=== PATIENT | female | born 1985 | race Caucasian/White ===

== ENCOUNTER 2019-04-12 20:05 | Emergency (ER) | payer MEDICAID ==
--- NOTE | 2019-04-12 20:35 | EDM.PDOC ---
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 Painless. Denies cramping. Started as dark brown color Monday (3 days ago) but today turned bright red. She called her physician and he recommended that she come here for evaluation. Has not had an US study as of yet to evaluate IUP. No other complaints. - Related Data Allergies Allergy/AdvReac Type Severity Reaction Status Date / Time codeine Allergy Hyperactivi Verified 04/12/19 20:07 ty Home Meds: Home Meds Fluticasone Propionate [Flonase Allergy Relief] 1 spray NS DAILY 04/12/19 [ History] Past Medical History HEENT History: Reports: Impaired Vision Cardiovascular History: Reports: Hypertension, Other (See Below) Other Cardiovascular History: gestational HTN Respiratory History: Reports: None Gastrointestinal History: Reports: None Genitourinary History: Reports: None MORTGAGE SPECIALIST History: Reports: Musculoskeletal History: Reports: Fracture, Other (See Below) Other Musculoskeletal History: left arm fracture x 2 Neurological History: Reports: Migraines Psychiatric History: Reports: None Endocrine/Metabolic History: Reports: Obesity/BMI 30+ Hematologic History: Reports: None Immunologic History: Reports: None Oncologic (Cancer) History: Reports: None Dermatologic History: Reports: None - Infectious Disease History Infectious Disease History: Reports: Chicken Pox - Past Surgical History HEENT Surgical History: Reports: Oral Surgery Cardiovascular Surgical History: Reports: None Respiratory Surgical History: Reports: None GI Surgical History: Reports: None Musculoskeletal Surgical History: Reports: None Social & Family History - Tobacco Use Smoking Status *Q: Current Every Day Smoker Years of Tobacco use: 14 Packs/Tins Daily: 0.5 ED ROS GENERAL - Review of Systems Review Of Systems: See Below Constitutional: Reports: No Symptoms HEENT: Reports: No Symptoms Respiratory: Reports: No Symptoms Cardiovascular: Reports: No Symptoms GI/Abdominal: Reports: No Symptoms : Reports: Other (vaginal bleeding as in HPI). Denies: Discharge, Dysuria, Flank Pain, Frequency, Hematuria, Pain, Urgency, Urinary Retention Musculoskeletal: Reports: No Symptoms Skin: Reports: No Symptoms Neurological: Reports: No Symptoms Psychiatric: Reports: No Symptoms ED EXAM - Physical Exam Exam: See Below General Appearance: Alert, WD/WN, No Apparent Distress Eye Exam: Bilateral Eye: EOMI, PERRL Nose: No: Nasal Deformity, Nasal Swelling, Nasal Drainage Throat/Mouth: Normal Lips, Normal Voice, No Airway Compromise Head: Atraumatic, Normocephalic Neck: Supple Respiratory/Chest: No Respiratory Distress GI/Abdominal Exam: Soft, Non-Tender, No Distention Back Exam: No: CVA Tenderness (L), CVA Tenderness (R) Extremities: Normal Capillary Refill Neurological: Alert, Oriented, Normal Cognition, Normal Gait Psychiatric: Normal Affect, Normal Mood Skin Exam: Warm, Dry, Intact, Normal Color Course - Vital Signs Last Recorded V/S: Last Vital Signs Temp 37.0 C 04/12/19 20:08 Pulse 100 04/12/19 20:08 Resp 16 04/12/19 20:08 BP 145/86 H 04/12/19 20:08 Pulse Ox 97 04/12/19 20:08 - Re-Assessments/Exams Free Text/Narrative Re-Assessment/Exam: 04/12/19 20:39 Given that the patient is 7wks along tomorrow and has the current bleeding complaint, US study is indicated to see if this is an intrauterine and not tubal. Cannot rule out bleeding associated with miscarriage. Call placed to [place] to arrange for patient to be seen and have US study performed. Accepted by . Vital signs stable, pain-free. Will be driven by private vehicle to the [place] ER for further evaluation. Departure - Departure Time of Disposition: 20:34 Disposition: DC/Tfer to Acute Hospital 02 Condition: Good Clinical Impression: Vaginal bleeding before 22 weeks gestation - Discharge Information *PRESCRIPTION DRUG MONITORING PROGRAM REVIEWED*: Not Applicable *COPY OF PRESCRIPTION DRUG MONITORING REPORT IN PATIENT ZHANE: Not Applicable Referrals: PCP,Unknown [Primary Care Provider] - Forms: ED Department Discharge Additional Instructions: drive directly to [place]. They will evaluate you and get an ultrasound study performed to assess the bleeding.
== END 2019-04-12 20:45 ==
LOC: LL.ED 20:05
DX: O20.8 Other hemorrhage in early pregnancy (principal); O16.1 Unspecified maternal hypertension, first trimester; O99.331 Smoking (tobacco) complicating pregnancy, first trimester; F17.210 Nicotine dependence, cigarettes, uncomplicated; Z88.5 Allergy status to narcotic agent; Z79.899 Other long term (current) drug therapy; Z3A.01 Less than 8 weeks gestation of pregnancy
CPT/HCPCS: 99284

== ENCOUNTER 2019-12-03 09:56 | Emergency (ER) | payer MEDICAID ==
--- NOTE | 2019-12-03 10:10 | EDM.PDOC ---
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 No paper hospital chart available.) History Limitations: Reports: No Limitations - History of Present Illness INITIAL COMMENTS - FREE TEXT/NARRATIVE: The patient drove herself to the emergency room via private automobile for evaluation of probable spontaneous rupture of membranes. She was evaluated by her OB at [facility] in [place] [facility] yesterday and was dilated at 3 cm with no stripping of membranes at that time. Note that at about 7 AM this morning the patient had some moderate intermittent somewhat progressive clear fluid from her vaginal area with no odor of urine, etc.. She denies any pain or uterine contractions at this time. No problems during current other than initial mild vaginal spotting secondary to uterine implantation at about 7 weeks gestation. No recent history of abdominal pain, heartburn, nausea, diarrhea, melena, gross hematochezia, or any food intolerance, including fatty foods, etc.. She denies any gross hematuria, colic, or other UTI symptoms. The patient also denies any recent fever, cough, wheezing, dyspnea, etc.. She did get her influenza booster this season. Onset: Today, Sudden Onset Date: 12/03/19 Onset Time: 07:00 Duration: Getting Worse, Intermittent Location: Reports: Other (No pain) Quality: Reports: Other (No pain) Severity: Mild (Leakage) Improves with: Reports: None Worsens with: Reports: None Associated Symptoms: Reports: No Other Symptoms. Denies: Confusion, Chest Pain , Cough, Diaphoresis, Fever/Chills, Malaise, Nausea/Vomiting, Shortness of Breath, Weakness Treatments SAFETY ADMIN ASSISTANT: Reports: Other (see below) (None) - Related Data Allergies Allergy/AdvReac Type Severity Reaction Status Date / Time codeine Allergy Hyperactivi Verified 04/12/19 20:07 ty Home Meds: Home Meds Fluticasone Propionate [Flonase Allergy Relief] 1 spray NS DAILY PRN 04/12/19 [ History] Pnv No.95/Ferrous Fum/Folic AC [ Vitamins Tablet] 1 tab PO DAILY [History] Past Medical History HEENT History: Reports: Allergic Rhinitis, Impaired Vision, Other (See Below). Denies: Hard of Hearing, Otitis Media, Retinal Detachment Other HEENT History: Patient wears glasses. Cardiovascular History: Reports: Hypertension, Other (See Below). Denies: Afib , Aneurysm, Arrhythmia, Blood Clots/VTE/DVT, CAD, Heart Failure, Heart Murmur, High Cholesterol, [place], PVD Other Cardiovascular History: Gestational HTN during first without preeclampsia. Respiratory History: Reports: None. Denies: Asthma, Bronchitis, Recurrent, COPD , Intubation, Difficult, Intubation, Previous, PE, Pneumothorax, Sleep Apnea, TB Gastrointestinal History: Reports: None. Denies: Bowel Obstruction, Celiac Disease, Cholelithiasis, Chronic Constipation, Chronic Diarrhea, Fecal Incontinence, Gastritis, GERD, GI Bleed, Irritable Bowel Syndrome, Jaundice, PUD Genitourinary History: Reports: None. Denies: Acute Renal Failure, Chronic Renal Insuffiency, Renal Calculus, STD, Urinary Incontinence, UTI, Recurrent JACQUARD LOOM CARPET WEAVER History: Reports: . Denies: Dysfunctional Uterine Bleeding, Endometriosis, Fibroids, Polycystic Ovaries, Spontaneous , Therapeutic : 2 Para: 1 LMP (Approximate): Other (See Below) Other JACQUARD LOOM CARPET WEAVER History: Current of 40 3/7 weeks with spontaneous rupture of membranes as above. First was induction at 41 weeks gestation with elevated blood pressure without proteinuria, preeclampsia, etc. during her , no other problems during or delivery with with this . 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 Musculoskeletal History: Reports: Fracture, Other (See Below). Denies: Arthritis, Back Pain, Chronic, Gout, Osteoarthritis, RA, SLE Other Musculoskeletal History: Left arm mid radial and ulnar fractures 2 initially at age 5 then at age 9. Right digit #1 toe fracture at age 16. Neurological History: Reports: Headaches, Chronic, Migraines. Denies: Concussion, CVA, Head Trauma, MS, Neuropathy, Peripheral, Parkinson's, Seizure, TIA, Vertigo Psychiatric History: Reports: None. Denies: Abuse, Victim of, ADD, ADHD, Addiction, Anxiety, Depression, Psych Hospitalization(s), PTSD, Suicide Attempt , Suicidal Ideation Endocrine/Metabolic History: Reports: Obesity/BMI 30+. Denies: Diabetes, Gestational, Diabetes, Type I, Diabetes, Type II, Diabetes Mellitus, Type 3c, Hypothyroidism, IDDM Hematologic History: Reports: None. Denies: Blood Transfusion(s), Iron Deficiency Immunologic History: Reports: None. Denies: AIDS, HIV, SLE Oncologic (Cancer) History: Reports: Other (See Below) Other Oncologic History: Abnormal Pap smear secondary to HPV requiring LEEP procedure as below in 2016. Dermatologic History: Reports: None. Denies: Eczema, Psoriasis - Infectious Disease History Infectious Disease History: Reports: Chicken Pox. Denies: C-Difficile, Measles , Meningitis, Mononucleosis, MRSA, Mumps, Pertussis (Whooping Cough), Rheumatic Fever, Rubella, Scarlet Fever, Shingles, TB, VRE - Past Surgical History Head Surgeries/Procedures: Reports: None HEENT Surgical History: Reports: None, Oral Surgery, Other (See Below). Denies : Adenoidectomy, Eye Surgery, Laser Surgery, LASIK, Myringotomy w Tube(s), Naso- Sinus Surgery, Tonsillectomy Other HEENT Surgeries/Procedures: [place] teeth extraction is 4 at age 18. Additional teeth extraction secondary to braces at age 12. Cardiovascular Surgical History: Reports: None. Denies: Varicose Respiratory Surgical History: Reports: None. Denies: Thoracentesis GI Surgical History: Reports: None. Denies: Appendectomy, Cholecystectomy, Colonoscopy, EGD, Hernia, Abdominal, Hernia, Inguinal, Hernia Repair/Other, Polypectomy Female Surgical History: Reports: LEEP, Other (See Below). Denies: Breast Biopsy, D&C, Hysterectomy, Salpingo-Oophorectomy, Tubal Ligation Other Female Surgeries/Procedures: LEEP in 2016 secondary to HPV/abnormal Pap smear. Endocrine Surgical History: Reports: None. Denies: Thyroid Biopsy Neurological Surgical History: Reports: None. Denies: C-Spine, Discectomy, Laminectomy, Lumbar Spine, Spinal Fusion, Thoracic Spine, Vertebroplasty Musculoskeletal Surgical History: Reports: None. Denies: Arthroscopic Procedure , Carpal Tunnel, Ganglion Cyst, Joint Replacement, ORIF, Shoulder Surgery Oncologic Surgical History: Reports: None Dermatological Surgical History: Reports: None - Past Imaging History Past Imaging History: Reports: Ultrasound (OB ultrasounds.) Social & Family History - Tobacco Use Smoking Status *Q: Current Every Day Smoker Tobacco Use Within Last Twelve Months: Cigarettes Years of Tobacco use: 13 Packs/Tins Daily: 0.5 Packs/Tins Daily Comment: Started smoking at age 21 with maximum use of one pack per day. Smoking Cessation Information Provided To Patient: Yes Second Hand Smoke Exposure: Yes Source of Second Hand Smoke Exposure: smokes Second Hand Smoke Education Provided: Yes - Living Situation & Occupation Living situation: Reports: with Significant Other, with Family Occupation: Unemployed ED ROS GENERAL - Review of Systems Review Of Systems: Comprehensive ROS is negative, except as noted in HPI. ED EXAM - Physical Exam Exam: See Below Exam Limited By: No Limitations General Appearance: Alert, WD/WN, No Apparent Distress Eye Exam: Bilateral Eye: EOMI, Normal Inspection (No nystagmus. Patient wearing glasses.) Neck: Normal Inspection, Supple, Non-Tender, Full Range of Motion. No: Lymphadenopathy (L), Lymphadenopathy (R), Thyromegaly Respiratory/Chest: No Respiratory Distress, Lungs Clear, Normal Breath Sounds, No Accessory Muscle Use, Chest Non-Tender. No: Pleural Rub, Retractions Cardiovascular: Normal Peripheral Pulses, Regular Rate, Rhythm, No Edema, No Gallop, No JVD, No Murmur, No Rub. No: Gallop/S3, Gallop/S4, Friction Rub GI/Abdominal Exam: Normal Bowel Sounds, Soft, Non-Tender, No Organomegaly, No Distention, No Abnormal Bruit, No Mass, Pelvis Stable. No: Guarding Fundal Height In cm: 38 Rectal Exam: Deferred (Female) Exam: Cervical Dilatation (3 cm), Cervical Fluid (Moderate pooling of mostly clear amniotic fluid with positive nitrazine test), Enlarged Uterus ( Consistent with and dates), Other (Vertex position, -1 station, 50% effaced. No uterine contractions by exam.). No: Adnexal Mass (L), Adnexal Mass (R), Adnexal Tenderness, Cervical Discharge, Cervical Lesions, Cervix Motion Tenderness, Uterine Tenderness, Vaginal Bleeding, Vaginal Discharge, Vaginal Lesions, Vaginal Tears Heart Tones: Present Heart Tones per Min: 140 Movement: Active Back Exam: Normal Inspection, Full Range of Motion. No: CVA Tenderness (L), CVA Tenderness (R), Muscle Spasm Extremities: Normal Inspection, Normal Range of Motion, Non-Tender, No Pedal Edema, Normal Capillary Refill. No: Nahid's Sign, Limited Range of Motion Neurological: Alert, Oriented, CN II-XII Intact, Normal Cognition, Normal Gait, Normal Reflexes, No Motor/Sensory Deficits Psychiatric: Normal Affect, Normal Mood Skin Exam: Warm, Dry, Intact, Normal Color, No Rash. No: Diaphoretic, Wound/ Incision Lymphatic: No Adenopathy Course - Vital Signs Last Recorded V/S: Last Vital Signs Temp 37.0 C 12/03/19 10:11 Pulse 82 12/03/19 10:11 Resp 20 12/03/19 10:11 BP 155/98 H 12/03/19 10:11 Pulse Ox 98 12/03/19 10:11 Vital Signs - 24 hr 12/03/19 10:11 Temperature [ 37.0 C Temporal] Pulse, 82 Peripheral [ Left Pulse Oximetry] Respiratory 20 Rate Blood Pressure 155/98 H [Left Upper Arm ] O2 Sat by Pulse 98 Oximetry - Orders/Labs/Meds Labs: None Meds: None - Radiology Interpretation Free Text/Narrative:: None Departure - Departure Time of Disposition: 10:41 Disposition: DC/Tfer to Acute Hospital 02 Condition: Good Clinical Impression: Tobacco abuse counseling, Spontaneous rupture of amniotic membranes, Elevated blood pressure reading, Intrauterine , Allergic rhinitis - Discharge Information *PRESCRIPTION DRUG MONITORING PROGRAM REVIEWED*: Not Applicable *COPY OF PRESCRIPTION DRUG MONITORING REPORT IN PATIENT ZHANE: Not Applicable Instructions: Steps to Quit Smoking, [id number], Health Risks of Smoking, Signs and Symptoms of Labor Referrals: Selena Diaz PA-C [Primary Care Provider] - Forms: ED Department Discharge, Interfacility Transfer EMTALA Additional Instructions: 1. Your stepdaughter should drive you for direct admission to the OB/labor and delivery department at [facility] 2. Nothing to eat or drink until otherwise directed by accepting providers. 3. Stop all tobacco use [facility] as directed/per provided information and consider contacting Quit LIne, etc.. 4. Immediately after this visit verify that your cellular telephone's voicemail has been activated and is empty. Also verify that your home telephone 's answering machine is operating properly and has space to receive messages. Note that it is sometimes necessary for us to be able to contact you at a later date to discuss your medical care. 5. Please remember that we are ALWAYS here for you and want to answer any questions you may have. Feel free to call the hospital any time and we call you back TARA. Sepsis Event Note - Focused Exam Vital Signs: Vital Signs Temp Pulse Resp BP Pulse Ox 12/03/19 10:11 37.0 C 82 20 155/98 H 98 Date Exam was Performed: 12/03/19 Time Exam was Performed: 10:25 - Problem List & Annotations (1) Intrauterine SNOMED Code(s): 09045830 Code(s): Z34.90 - ENCNTR FOR SUPRVSN OF NORMAL , UNSP, UNSP TRIMESTER Status: Acute Priority: High Current Visit: Yes Onset Date: Annotation/Comment:: Spontaneous rupture of membranes this morning as above. EDC of 11/30/19 confirmed by LMP and OB ultrasounds during by patient history. Telephone consultation at 10:[address] Damon, JACQUARD LOOM CARPET WEAVER , who does accept the patient for direct admission to their L&D department, with no further treatment recommendations given. Private automobile transfer as per discharge instructions. Note that the patient was examined by her regular OB yesterday and was 3 cm dilated at that time. Clear amniotic fluid today. activity noted during ER evaluation, however no uterine contractions to this point. heart tones were excellent by Doppler. (2) Spontaneous rupture of amniotic membranes SNOMED Code(s): 772576366 Code(s): URR8518 - Status: Acute Priority: High Current Visit: Yes Onset Date: 12/03/19 Annotation/Comment:: As above (3) Elevated blood pressure reading SNOMED Code(s): 59225125 Code(s): R03.0 - ELEVATED BLOOD-PRESSURE READING, W/O DIAGNOSIS OF HTN Status: Acute Priority: High Current Visit: Yes Onset Date: 12/03/19 Annotation/Comment:: No problems with blood pressure during this by patient history, although she did have elevated blood pressure during her previous without preeclampsia. No evidence of headaches, visual changes, etc. and no evidence of preeclampsia today. The patient was cautioned about the risk of possible hypertension in the future secondary to elevated blood pressures with pregnancies. Continue to observe closely by her accepting and regular providers. (4) Tobacco abuse counseling SNOMED Code(s): 746366847, 340234050, 240634499 Code(s): Z71.6 - TOBACCO ABUSE COUNSELING Status: Chronic Priority: Medium Current Visit: Yes Annotation/Comment:: The importance of tobacco cessation both by the patient and her significant other was extensively discussed and encouraged. Tobacco cessation information provided at discharge. (5) Allergic rhinitis SNOMED Code(s): 97043480 Code(s): J30.9 - ALLERGIC RHINITIS, UNSPECIFIED Status: Chronic Priority : Medium Current Visit: Yes Annotation/Comment:: Stable by patient history. She did obtain influenza booster this season by her history. Qualifiers: Allergic rhinitis trigger: unspecified Allergic rhinitis seasonality: unspecified Qualified Code(s): J30.9 - Allergic rhinitis, unspecified - Problem List Review Problem List Initiated/Reviewed/Updated: Yes - Assessment/Plan Assessment:: As above Plan: As above. Extensive precautions were given to the patient, who is in agreement with the treatment plan. See Patient Instructions for further treatment and plan.
== END 2019-12-03 10:40 ==
LOC: LL.ED 09:56
DX: O42.92 Full-term premature rupture of membranes, unspecified as to length of time between rupture and onset of labor (principal); O16.3 Unspecified maternal hypertension, third trimester; O99.513 Diseases of the respiratory system complicating pregnancy, third trimester; J30.9 Allergic rhinitis, unspecified; O99.213 Obesity complicating pregnancy, third trimester; E66.9 Obesity, unspecified; O99.333 Smoking (tobacco) complicating pregnancy, third trimester; F17.210 Nicotine dependence, cigarettes, uncomplicated; Z3A.40 40 weeks gestation of pregnancy; Z71.6 Tobacco abuse counseling; Z88.5 Allergy status to narcotic agent
CPT/HCPCS: 99284